=== PATIENT | male | born 1975 | race Caucasian/White ===

== ENCOUNTER 2018-01-18 13:11 | Emergency (ER) | payer MEDICAID, SELFPAY ==
[2018-01-18 13:12] VITALS: BP 135/85; PULSE 82; RESP 17; TEMP 36.9; O2SAT 98; BMI 33.5
--- NOTE | 2018-01-18 13:32 | ED.DCSUM_ITS ---
- ER Visit Summary Date of Service: 01/18/18 Chief Complaint: Back pain History of Present Illness: The patient is a 42 M who presents with left lower back pain that began yesterday. Patient states he has a history of chronic back pain. Patient states the pain radiates down his left leg. Patient denies any paresthesias or weakness. Patient denies any bowel or bladder changes. Patient denies any saddle anesthesia. Patient denies any specific trauma or injury. Patient denies any chest pain or shortness of breath. Patient states the pain is worse with ambulation. Patient states he has been taking ibuprofen with no relief. Physical Examination: Vital signs are stable. Patient is afebrile. Patient is in no acute distress. Musculoskeletal exam reveals tenderness and spasm of the left lumbar paraspinal muscles. There is no midline tenderness. There is no bony crepitance or step-off. Range of motion was limited all motions of the lumbar spine secondary to pain. Strength is 5/5 bilaterally in the lower extremities. Deep tendon reflexes were 2+/4 bilaterally in the lower extremities. There are no sensory deficits noted. The remaining physical exam is within normal limits. Emergency Department Course and Treatment: Patient was given prescriptions for meloxicam and Flexeril. Patient was instructed to use ice to the area. Patient was instructed to follow-up with his primary care physician in 5-7 days. Patient understood and was agreeable with the plan. All questions were answered. Disposition: Discharged home Impression: Acute lumbosacral strain This note was generated with [employer] dictation software. It may contain incorrect words, spelling, and punctuation that were not noted in review of the chart prior to signing ED Disposition - Plan for ED Patient: Disposition: Home or Assisted Living Chief Complaint: Back Diagnosis: Lumbosacral strain Instructions: ED Sprain Strain Lumbar Prescriptions: Cyclobenzaprine [Flexeril] 10 mg PO TID PRN PRN #20 tab PRN Reason: Muscle Spasm Meloxicam [Mobic] 15 mg PO DAILY 10 Days #10 tab Referrals: Kurtis Saxena MD [NON-STAFF] -
--- NOTE | 2018-01-18 14:44 | ED.RN ---
PT AGITATED WITH WAIT TIME BETWEEN TIME HE WAS SEEN BY PHYSICIAN AND TIME DISCHARGE ENTERED. PT INFORMED OF CRITICAL PT IN ED AND THAT PHYSICIAN WAS BUSY. PHYSICIAN INFORMED OF PT AGITATION, ORDERS FOR DISCHARGE WERE DELAYED AND PT VOICED AGITATION UPON LEAVING THAT HE WAITED FOR AN HOUR AND A HALF FOR ABSOLUTELY NOTHING. THOSE MEDICATIONS DON'T WORK, AND I'M NOT GOING TO WAIT MORE FOR NOTHING. THIS NURSE APOLOGIZED FOR WAIT, PT LEFT SLAMMING DOORS.
== END 2018-01-18 14:50 | disposition home or self-care (01) ==
PROVIDERS: Emergency Provider Emergency Medicine
DX: S39.012A Strain of muscle, fascia and tendon of lower back, initial encounter (principal); Z72.0 Tobacco use; X58.XXXA Exposure to other specified factors, initial encounter; Y93.9 Activity, unspecified; Y92.9 Unspecified place or not applicable; Y99.9 Unspecified external cause status
CPT/HCPCS: 99282

== ENCOUNTER 2018-08-27 10:45 | Emergency (ER) | payer MEDICAID, SELFPAY ==
[2018-08-27 10:46] VITALS: BP 157/85; PULSE 82; RESP 17; TEMP 36.8; O2SAT 99; BMI 34.9
--- NOTE | 2018-08-27 11:01 | RAD_ITS ---
STUDY: X-RAY - RIGHT ELBOW REASON FOR EXAM: Male, 42 years old. Pain following a fall. TECHNIQUE: 3 view(s) of the elbow. COMPARISON: None. FINDINGS: Normal visualized humerus, radius and ulna. Normal radiocapitellar and ulnotrochlear articulations. The soft tissue structures are unremarkable. RAD/Elbow min 3 Views IMPRESSION: Normal x-ray examination of the elbow. Electronically Signed: Bryon Carnes MD at 13:28 EST , Service support ,
--- NOTE | 2018-08-27 11:01 | CT_ITS ---
STUDY: CT BRAIN WITHOUT CONTRAST REASON FOR EXAM: Male, 42 years old. History of fall. No loss of consciousness. RADIATION DOSAGE (If Supplied By Facility): CTDIvol = ( 44.99 ) mGy, DLP = ( 779.24 ) mGycm TECHNIQUE: Transaxial CT imaging of the brain was performed without administration of intravenous contrast material. Individualized dose optimization techniques were used for this CT. COMPARISON: Comparison is made with prior study dated May 07, 2017. FINDINGS: Normal soft tissue structures. Normal calvarium. Normal size ventricles and extra-axial spaces for the patient's age. Normal white matter tracts of the cerebral hemispheres. Normal basal ganglia and thalami. Normal brainstem. Normal cerebellum. There is no intracranial hemorrhage. There are no findings of an acute ischemic infarction. Partial opacification of the left maxillary sinus. CT/Brain/Head without Contrast IMPRESSION: Partial opacification of the left maxillary sinus. Electronically Signed: rByon Carnes MD at 13:29 EST , Service support ,
[2018-08-27] MEDS: HYDROcodone Bitartrate/Apap 5/325 Tablet PO (11:07)
--- NOTE | 2018-08-27 13:48 | ED.VISSUMM ---
- ER Visit Summary Date of Service: 08/27/18 Chief Complaint: Fall History of Present Illness: The patient is a 42 M with a mechanical fall yesterday evening. He fell on steps. He hit the left side of his head as well as his right elbow and his back. Symptoms are worse with movement. He did not lose consciousness. He is not on blood thinners. He has been taking ibuprofen with minimal relief. Physical Examination: Afebrile and vital signs unremarkable. Head and neck are atraumatic. Neck is nontender. Left face is tender to palpation in the temporal region. HEENT exam otherwise unremarkable. Heart regular. Lungs clear. No focal or lateralizing abnormalities. Test Results: CT brain showed no evidence of trauma. Elbow x-ray negative. Emergency Department Course and Treatment: Patient received [place] in the emergency department for his pain. There was some delay in obtaining imaging results. We did contact radiology as there was quite a delay. I did want them to review his CT brain prior to discharge. Everything looks unremarkable. He was given a short course of pain medicine. He may use anti-inflammatories as well. Rest and follow-up with primary care. Treatment Plan: As above Disposition: Discharge Impression: 1. Closed head injury 2. Right elbow contusion This note was generated with [employer] dictation software. It may contain incorrect words, spelling, and punctuation that were not noted in review of the chart prior to signing ED Disposition - Plan for ED Patient: Referrals: Hilario Malone MD [Primary Care Provider] -
--- NOTE | 2018-08-27 13:53 | ED.DCSUM_ITS ---
- ER Visit Summary Date of Service: 08/27/18 Chief Complaint: Fall History of Present Illness: The patient is a 42 M with a mechanical fall yesterday evening. He fell on steps. He hit the left side of his head as well as his right elbow and his back. Symptoms are worse with movement. He did not lose consciousness. He is not on blood thinners. He has been taking ibuprofen with minimal relief. Physical Examination: Afebrile and vital signs unremarkable. Head and neck are atraumatic. Neck is nontender. Left face is tender to palpation in the temporal region. HEENT exam otherwise unremarkable. Heart regular. Lungs clear. No focal or lateralizing abnormalities. Test Results: CT brain showed no evidence of trauma. Elbow x-ray negative. Emergency Department Course and Treatment: Patient received [place] in the emergency department for his pain. There was some delay in obtaining imaging results. We did contact radiology as there was quite a delay. I did want them to review his CT brain prior to discharge. Everything looks unremarkable. He was given a short course of pain medicine. He may use anti-inflammatories as well. Rest and follow-up with primary care. Treatment Plan: As above Disposition: Discharge Impression: 1. Closed head injury 2. Right elbow contusion This note was generated with [employer] dictation software. It may contain incorrect words, spelling, and punctuation that were not noted in review of the chart prior to signing ED Disposition - Plan for ED Patient: Referrals: Hilario Malone MD [Primary Care Provider] -
--- NOTE | 2018-08-27 13:53 | ED.DEP ---
ED Disposition - Plan for ED Patient: Instructions: ED Mechanical Fall Prescriptions: Hydrocodone Bitart/Apap 5-325 [[place] 5MG-325MG] 1 tab PO Q6H PRN PRN 3 Days #10 tab PRN Reason: Pain Referrals: Hilario Malone MD [Primary Care Provider] -
--- NOTE | 2018-08-27 14:08 | ED.RN ---
Pt very upset that he had to wait so long for xray and CT results. Emotional support given. This RN was at bedside multiple times to apologize about the delay. radiology was called twice to ask why the delay on results being read. Emotional support given multiple times. Reviewed discharge instructions and follow up with patient. Pt yelling, refuses d/c vitals. Pt states i feel like you guys are milking my insurance, every fucking time im here i waiting 3-[address] piss[address] me off Emotional support given, family member/friend states its ok. Pt ambulated self out of ED with steady gait.
== END 2018-08-27 14:14 | disposition home or self-care (01) ==
PROVIDERS: Emergency Provider Emergency Medicine; Family Provider Family Medicine; PCP Family Medicine
DX: S50.01XA Contusion of right elbow, initial encounter (principal); S09.90XA Unspecified injury of head, initial encounter; Z72.0 Tobacco use; W10.9XXA Fall (on) (from) unspecified stairs and steps, initial encounter; Y93.89 Activity, other specified; Y92.89 Other specified places as the place of occurrence of the external cause; Y99.8 Other external cause status
CPT/HCPCS: 70450; 73080; 99283

== ENCOUNTER 2019-01-24 04:22 | Emergency (ER) | payer MEDICAID, SELFPAY ==
[2019-01-01 07:35] VITALS: BMI 34.9
[2019-01-24 04:22] VITALS: BP 157/103; PULSE 76; RESP 18; TEMP 36.8; O2SAT 96; BMI 33.1
--- NOTE | 2019-01-24 04:34 | ED.VISSUMM ---
- ER Visit Summary Date of Service: 01/24/19 Chief Complaint: Sore throat History of Present Illness: The patient is a 43 M who presents with a sore throat. He has had a URI-like illness for about 5 days. He complains of nasal congestion, postnasal drainage, rhinorrhea, nonproductive cough, sore throat. His sore throat has worsened. It is worse on the left. He has pain with swallowing. No fevers. No nausea or vomiting. Physical Examination: Afebrile vitals normal Patient has posterior oropharyngeal erythema, uvula midline, no tonsillar enlargement or exudates Clear speech, no trismus No cervical or submandibular lymphadenopathy Test Results: Not indicated Emergency Department Course and Treatment: Patient has 0 out of 4 CENTOR criteria. Testing for streptococcal pharyngitis not indicated. Patient was given Decadron for symptomatic relief. He was advised on supportive care. Patient was discharged. Treatment Plan: [] Disposition: Discharge Impression: Pharyngitis This note was generated with [employer] dictation software. It may contain incorrect words, spelling, and punctuation that were not noted in review of the chart prior to signing ED Disposition - Plan for ED Patient: Referrals: NOT,DEFINED [Primary Care Provider] -
--- NOTE | 2019-01-24 04:36 | ED.DEP ---
ED Disposition - Plan for ED Patient: Instructions: PHARYNGITIS, Viral Referrals: NOT,DEFINED [Primary Care Provider] -
[2019-01-24] MEDS: dexAMETHasone 4 MG Tablet 10 MG PO (04:41)
== END 2019-01-24 04:47 | disposition home or self-care (01) ==
LOC: ED 04:46
PROVIDERS: Emergency Provider Emergency Medicine
DX: J02.9 Acute pharyngitis, unspecified (principal); Z72.0 Tobacco use
CPT/HCPCS: 99283

== ENCOUNTER 2019-07-26 09:34 | Emergency (ER) | payer MEDICAID, SELFPAY ==
[2019-07-26 09:37] VITALS: BP 132/96; PULSE 83; RESP 16; TEMP 36.6; O2SAT 95; BMI 33.3
--- NOTE | 2019-07-26 09:47 | RAD_ITS ---
STUDY: X-RAY CHEST REASON FOR EXAM: Male, 43 years old. Chest tightness. Shortness of breath. TECHNIQUE: Single frontal view of the chest. COMPARISON: None. FINDINGS: The lungs are clear and expanded. There is no demonstrated pleural abnormality. Normal size heart. Normal mediastinum and anna. Normal visualized pulmonary arteries. Normal visualized aortic arch and descending thoracic aorta. Normal visualized thoracic spine. Normal visualized ribs, clavicles, and shoulders. There is no demonstrated abnormality of the visualized soft tissue structures of the upper abdomen. RAD/Chest 1 View (Portable) IMPRESSION: Normal x-ray examination of the chest. Electronically Signed: John Guajardo MD at 10:24 EST , Service support ,
--- NOTE | 2019-07-26 09:48 | EKG12_ITS ---
Test Reason : CP Blood Pressure : / mmHG Vent. Rate : 079 BPM Atrial Rate : 079 BPM P-R Int : 136 ms QRS Dur : 092 ms QT Int : 378 ms P-R-T Axes : 036 058 042 degrees QTc Int : 433 ms Normal sinus rhythm Poor R- wave Progression Confirmed by JOE HERRERA, ROCK ([id number]), desk editor NARGIS MILLER ([id number]) on 07/29/2019 11:12:43 AM Referred By: NICHOLE/REFUGIO Confirmed By:ROCK DIAZ MD
--- NOTE | 2019-07-26 09:48 | CT_ITS ---
STUDY: CT ABDOMEN AND PELVIS WITH CONTRAST REASON FOR EXAM: Male, 43 years old. ABD PAIN, DIARRHEA X 8-9 DAYS, CP, DIZZY, HTN, GERD RADIATION DOSAGE (If Supplied By Facility): CTDIvol = ( 16.75 ) mGy, DLP = ( 1079.34 ) mGycm TECHNIQUE: Transaxial images were obtained from the dome of the diaphragm to the symphysis pubis with oral contrast. Oral and amp; IV Gastrografin and amp; 100mL Isovue-300 was administered. Sagittal and coronal images were reconstructed. Individualized dose optimization techniques were used for this CT. COMPARISON: None. FINDINGS: Minor pleural and interstitial scarring noted in the left lung base. Normal liver. No intrahepatic biliary duct dilatation or liver mass. Normal gallbladder and extrahepatic biliary system. Normal spleen. Normal pancreas. Normal bilateral adrenal glands. Normal right kidney. A small cyst of the left kidney is present. A small 3 mm calyceal stone is also seen in the left kidney see image 54/129 series 2. No hydronephrosis or renal masses. Normal visualized stomach. Normal small intestine. Normal colon. No bowel dilatation or obstruction. No free air or free fluid. The appendix is visualized and appears normal. There is diffuse atherosclerotic calcification of the abdominal aorta, without a demonstrated aneurysm. Normal inferior vena cava. Normal retroperitoneum. Normal urinary bladder. There are prostatic calcifications. Small fat and mesenteric containing left inguinal hernia noted. There are diffuse degenerative changes of the visualized lumbar spine. CT/Abdomen/Pelvis WITH Contrast IMPRESSION: 1. No demonstrated acute or significant process of the abdomen and pelvis. 2. A small 3 mm calyceal stone is also seen in the left kidney see image 54/129 series 2 Electronically Signed: Nadeem Davis MD at 13:46 EST , Service support ,
--- NOTE | 2019-07-26 09:49 | ED.DCSUM_ITS ---
History of Present Illness Chief Complaint: Chest Pain Informant: Patient Onset: Today Narrative: Patient reports diarrhea for the past 1 week with pain in the left groin. 2 days ago he developed nausea and vomiting. He got up for work this morning and states he just felt wiped out. He went to work but found himself getting short of breath with exertion. He called his doctor's office and was advised of call 911. Patient states he went to talk to his supervisors about leaving to come to the emergency room and developed chest tightness and lightheadedness. EMS was called. In route to the hospital patient states he had one episode of sharp pain in his chest that lasted only a few seconds and spontaneously resolved before any nitro could be given. Past Medical History - Allergies and Home Meds Allergies/Adverse Reactions: Allergies acetaminophen [From [place]] Allergy (Verified 07/26/19 09:39) Rash hydrocodone [From [place]] Allergy (Verified 07/26/19 09:39) Rash Primary Care Physician: Kurtis Saxena MD [Primary Care Provider] - Prior records reviewed: Yes Past Medical History: None - Prior stress test 12 years ago normal Lives: Spouse/ Significant Other Smoking Status: Current every day smoker Review of Systems General: Denies: Chills, Fever Eyes: Denies: Visual changes - bilaterally ENT: Denies: Bilateral ear pain Cardiovascular: Reports: Chest pain Respiratory: Reports: Dyspnea. Denies: Cough, Sputum Gastrointestinal: Reports: Abdominal pain, Nausea, Vomiting, Diarrhea Musculoskeletal: Denies: Back pain, Extremity Pain Skin: Denies: Rash Neurological: Denies: Headache Allergy: Denies: Uticaria Physical Exam Vital Signs/Narrative: Vital Signs Temp Pulse Resp BP Pulse Ox 07/26/19 09:37 97.9 F 83 16 132/96 H 95 Inital Vital Signs reviewed: Yes General: Well nourished, Well developed Head: Normocephalic ENT: Moist mucous membranes Neck: Supple Cardiovascular: Regular rate, Regular rhythm Respiratory: No distress, CTA bilaterally Abdomen: Soft, Nontender, Normal bowel sounds Skin: Normal color Neurological: Alert, Oriented x3 Psychological: Normal affect Diagnostic/Tx/Re-eval Impressions Chest X-Ray 07/26/19 09:47 IMPRESSION: Normal x-ray examination of the chest. Electronically Signed: John Guajardo MD at 10:24 EST , Service support , Abdomen/Pelvis CT 07/26/19 09:48 IMPRESSION: 1. No demonstrated acute or significant process of the abdomen and pelvis. 2. A small 3 mm calyceal stone is also seen in the left kidney see image 54/129 series 2 Electronically Signed: Nadeem Davis MD at 13:46 EST , Service support , 07/26/19 09:47 Chest 1 View (Portable) [RAD] Stat 07/26/19 09:48 Abdomen/Pelvis WITH Contrast [CT] Stat Laboratory Results 07/26/19 07/26/19 07/26/19 10:20 10:20 10:36 WBC 6.4 RBC 4.61 Hgb 14.5 Hct 42.4 MCV 92.0 MCH 31.5 MCHC 34.2 RDW Std Deviation 43.5 RDW Coeff of [place] 12.9 Plt Count 198 MPV 9.6 Immature Gran % (Auto) 0.600 Neut % (Auto) 55.6 Lymph % (Auto) 31.6 [place] % (Auto) 6.7 Eos % (Auto) 5.0 Baso % (Auto) 0.5 Absolute Neuts (auto) 3.6 Absolute Lymphs (auto) 2.02 Nucleated RBC % 0 Sodium 140 Potassium 3.8 Chloride 109 H Carbon Dioxide 25.0 Anion Gap 6 BUN 9 Creatinine 0.96 Estim Creat Clear Calc 89.53 Est GFR (MDRD) Af Amer 110 Est GFR (MDRD) Non-Af 91 BUN/Creatinine Ratio 9.4 L Glucose 95 Calcium 8.9 Troponin I < 0.015 Urine Color Yellow Urine Clarity Clear Urine pH 7.0 Ur Specific [place] 1.010 Urine Protein Negative Urine Glucose (UA) Normal Urine Ketones Negative Urine Occult Blood Negative Urine Nitrite Negative Urine Bilirubin Negative Urine Urobilinogen Normal Ur Leukocyte Esterase Negative Urine RBC 0 SEEN Urine WBC 0 SEEN Ur Squamous Epith Cells 0 SEEN Urine Bacteria 0 SEEN Urine Mucus 0 SEEN - EKG Initial EKG Interpretation: Sinus Rhythm - Sinus at 79 with no acute ischemia. - Medical Decision Making Patient stated that he felt well on arrival did not wish for any pain or nausea medication. He has remained asymptomatic throughout his ED stay. Work-up is pretty benign. I did discuss with him that he does have a kidney stone present in the left kidney and this may cause problems in the future. If his symptoms worsen during he is to follow with his primary care physician or return to the ED. ED Disposition - Plan for ED Patient: Disposition: Home or Assisted Living Diagnosis: Chest pain, Abdominal pain Instructions: CHEST PAIN, Uncertain Cause, ABDOMINAL PAIN, Unkown Cause, (Male) Referrals: Kurtis Saxena MD [Primary Care Provider] - 1 Week if not improving
[2019-07-26 10:30] LABS: Absolute Lymphocyte Count 2.02 X10^3/uL (0.83-4.51); Absolute Neutrophil Count 3.6 X10^3/uL (2.0-7.7); Basophil# 0.03 X10^3/uL; Basophil% 0.5 % (0-1); Eosinophil# 0.32 X10^3/uL; Hematocrit 42.4 % (40-54); Hemoglobin 14.5 g/dL (13.0-16.5); Lymphocyte # 2.02 X10^3/ul (4.0); Lymphocyte % 31.6 % (19-41); Mean Corp Hgb Conc 34.2 g/dL (32-36); Mean Corpuscular Hgb 31.5 pg (27.0-32.0); Mean Platelet Vol. 9.6 fl (6.2-12.0); Monocyte# 0.43 X10^3/uL; Monocyte% 6.7 % (0-10); NRBC Flagged by Analyzer 0 % (0-5); Neutrophil # 3.56 X10^3/uL (2.7-7.7); Neutrophil % 55.6 % (47-70); Platelet Count 198 K/mm3 (150-450); RBC Distribution Width CV 12.9 % (11.6-14.6); RBC Distribution Width SD 43.5 fl (35.1-43.9); Red Blood Count 4.61 M/mm3 (4.6-6.2); White Blood Count 6.4 K/mm3 (4.4-11.0)
[2019-07-26 10:35] VITALS: BP 141/96; PULSE 73; RESP 13; TEMP 36.8; O2SAT 97
[2019-07-26] MEDS: 0.9% Normal Saline 1,000 ML 150 ML IV (10:38)
[2019-07-26 10:41] LABS: Bacteria 0 SEEN /hpf (None Seen); Mucous, Urine 0 SEEN /hpf (<or=2+); Red Blood Cells-Urine 0 SEEN /hpf (0-5); Squamous Epithelial Cells - UA 0 SEEN /hpf (0-5); White Blood Cells 0 SEEN /hpf (0-5)
[2019-07-26 10:46] LABS: Color, Urine Yellow (Yellow); Glucose, Dipstick Normal (Normal); Ketone-Dipstick Negative (Negative); Leukocyte Esterase-Dipstick Negative /ul (Negative); Nitrite-Dipstick Negative (Negative); Occult Blood-Urine Negative /ul (Negative); Protein-Dipstick Negative (Negative); Urine Bilirubin Dipstick Negative (Negative); Urine Clarity Clear (Clear); Urine Urobilinogen Normal (Normal)
[2019-07-26 10:59] LABS: Anion Gap 6 (5-15); BUN 9 mg/dL (7-18); BUN/Creat Ratio 9.4 RATIO (10-20); Calcium,Total 8.9 mg/dL (8.5-10.1); Chloride 109 mmol/L (98-107); Creatinine, Serum 0.96 mg/dL (0.70-1.30); EST Glomerular Filtration Rate 91 mL/min (>60); Est Glom Filt Rate - Afr Amer 110 mL/min (>60); Estimated Creatinine Clearance 89.53 ml/min; Glucose 95 mg/dL (74-106); Potassium 3.8 mmol/L (3.5-5.1); Sodium Level 140 mmol/L (136-145)
[2019-07-26 12:07] VITALS: BP 120/90; PULSE 73; RESP 19; TEMP 36.4; O2SAT 98
[2019-07-26 14:03] VITALS: BP 125/96; PULSE 68; RESP 16; O2SAT 95
== END 2019-07-26 14:03 | disposition home or self-care (01) ==
PROVIDERS: Emergency Provider Emergency Medicine; Family Provider Family Medicine; PCP Family Medicine
DX: R07.9 Chest pain, unspecified (principal); R10.9 Unspecified abdominal pain; F17.200 Nicotine dependence, unspecified, uncomplicated; N20.0 Calculus of kidney
CPT/HCPCS: 71045; 74177; 80048; 81001; 84484; 85025; 93005; 96360; 96361; 99285; J7030; J7050; Q9967; A4216

== ENCOUNTER 2023-01-03 11:27 | Emergency (ER) | payer MEDICAID, SELFPAY ==
[2023-01-03 11:27] VITALS: BP 151/112; PULSE 72; RESP 16; TEMP 36.8; O2SAT 97; BMI 28.1
--- NOTE | 2023-01-03 12:30 | ED.RN ---
THIS RN INTO ROOM. PT REFUSES WORKUP. IV REMOVED. MEDS WASTED
--- NOTE | 2023-01-03 12:38 | ED.VIS.GI ---
HPI HPI - GI History of Present Illness Chief Complaint: Abd Pain Informant: patient Abdominal Pain/Flank Pain Onset: Days (2) Context: Sudden Onset Timing: Continuous Quality: Aching and Stabbing Location: Epigastric, RUQ and LUQ Worsened by: Movement Relieved by: Nothing Nausea/Vomiting/Emesis GI Symptom: Positive for Nausea; Negative for Vomiting Diarrhea/Melena/Hematochezia GI Symptom: Negative for Diarrhea, Melena or Hematochezia Associated Symptoms Associated Symptoms: Negative for Dysuria, Frequency, Hematuria or Urgency Narrative Narrative: Patient presents with abdominal pain that has been getting worse over the past 2 days. Patient states he saw his primary care physician today who referred him to the emergency department for evaluation and CT scan. Patient states his pain is gradually getting worse. Patient states it began rather suddenly. Patient describes it as aching and stabbing. Patient states it is mainly over the upper abdomen. Patient states it is worse with certain movements. Patient states nothing makes it better. Patient admits to nausea but denies any vomiting. Patient denies any diarrhea, melena, or hematochezia. Patient denies any urinary complaints. [facility] Medical History (Updated 01/03/23 @ 12:[address] Stevie Marrero DO) Arthritis Asthma Knee pain neck/ back pain Home Medications multivitamin with minerals 1 ea PO DAILY 01/24/19 [History Last Taken 07/26/19] Allergy/AdvReac Type Severity Reaction Status Date / Time hydrocodone [From [place]] Allergy Rash Verified 07/26/19 09:39 Surgical History (Updated 01/03/23 @ 12:[address] Stevie Marrero DO) History of herniorrhaphy Social History Smoking Status: Current every day smoker tobacco type: cigarettes alcohol intake: never ROS ROS ED Constitutional Constitutional ED: Denies chills or fever(s) Eyes Eyes: Denies blurry vision or change in vision ENT ENT ED: Denies rhinorrhea or sore throat Cardiovascular Cardiovascular: Denies chest pain or palpitations Respiratory/Chest Respiratory/Chest: Denies cough or dyspnea Gastrointestinal Gastrointestinal: Reports abdominal pain and nausea; Denies vomiting Genitourinary Genitourinary ED: Denies dysuria or hematuria Musculoskeletal Musculoskeletal: Denies back pain or neck pain Integumentary Denies abscess or rash Neurologic Neurologic: Denies headache(s) or weakness Allergic/Immunologic Allergic/Immunologic ED: Denies mouth swelling or urticaria EXAM Physical Exam Const Vital Signs: 01/03/23 11:27 Temperature 98.2 F Temperature Source Temporal Pulse Rate 72 Respiratory Rate 16 Blood Pressure 151/112 H Blood Pressure Mean 125 Pulse Ox 97 Oxygen Delivery Method Room Air Positive well nourished and well developed General Appearance ED: well developed HEENT Reports moist mucous membranes Neck supple and no JVD Resp normal respiratory effort and clear to auscultation bilaterally Cardio regular rate, regular rhythm and no murmurs GI normal to inspection, nondistended, normoactive bowel sounds Palpation: soft and tender epigastric, LUQ, RUQ and periumbilical; Negative for guarding or rebound tenderness present Extremity normal to inspection General Extremety ED: Negative for edema or tenderness General Extremity: Negative for edema Neuro oriented x3, CN's II-XII intact bilaterally and no sensory deficits noted Sensorium / Orientation: alert Motor Exam: strength 5/5 throughout Psych mental status grossly normal Skin no rashes or lesions noted MDM MDM MDM Narrative Medical decision making narrative: Differential diagnosis includes cholecystitis, cholelithiasis, gastritis, gastric ulcer, duodenal ulcer, pancreatitis, urinary tract infection, pyelonephritis, and gastroenteritis. CBC will be obtained to assess for leukocytosis and anemia. Comprehensive metabolic profile will be obtained to assess for hepatic function, renal function, and electrolyte abnormality. Urinalysis will be obtained to assess for your urinary tract infection. Lipase will be obtained to assess for pancreatitis. CT scan of the abdomen and pelvis will be obtained to assess for cholecystitis, cholelithiasis, and pancreatitis. Treatment and Re-Evaluation :: Patient was ordered IV fluids, morphine, and Zofran. I was informed by the radiology ct technologist that the patient did not want to drink contrast or stay for any lab work or CT scan. Patient wanted to go home. Patient eloped from the emergency department. Discharge Plan Triage Chief Complaint: Abd Pain ED Provider: Stevie Marrero Dx/Rx/DC Orders Clinical Impression: Abdominal pain Prescriptions: No Action multivitamin with minerals 1 EACH tablet 1 ea PO DAILY Primary Care Provider: Jesse More Referrals: Jesse More MD [Primary Care Provider] - 3-5 Days Disposition Disposition: [facility] Discharge Date/Time: 01/03/23 12:37
== END 2023-01-03 12:37 | disposition left against medical advice (07) ==
LOC: ED 12:19
PROVIDERS: Emergency Provider Emergency Medicine; PCP Internal Medicine; Visit Provider Emergency Medicine
DX: R10.13 Epigastric pain (principal); R11.0 Nausea; J45.909 Unspecified asthma, uncomplicated; F17.210 Nicotine dependence, cigarettes, uncomplicated; R10.11 Right upper quadrant pain; R10.12 Left upper quadrant pain; Z53.20 Procedure and treatment not carried out because of patient's decision for unspecified reasons
CPT/HCPCS: 96360; 99283; A4216; J2405

== ENCOUNTER 2023-04-28 11:41 | Emergency (ER) | payer MEDICAID, SELFPAY ==
[2023-04-28 11:42] VITALS: BP 191/118; PULSE 76; RESP 14; TEMP 36.2; O2SAT 98; BMI 30.7
== END 2023-04-28 12:15 | disposition left against medical advice (07) ==
PROVIDERS: PCP Internal Medicine
DX: Z53.21 Procedure and treatment not carried out due to patient leaving prior to being seen by health care provider (principal)